=== PATIENT | female | born 1990 | race Hispanic/Latino ===

== ENCOUNTER 2017-06-12 23:29 | Emergency (ER) | payer OTHER ==
[2017-06-13 01:04] VITALS: BP 123/73; PULSE 91; RESP 17; TEMP 98.3; O2SAT 100
[2017-06-13] MEDS ORDERED: Lidocaine 1% Inj (20ml) SC ONE (01:06)
--- NOTE | 2017-06-13 01:08 | ED PDOC ---
HPI: General Adult Time Seen by Provider: 06/13/17 01:06 Chief Complaint (Nursing): Abnormal Skin Integrity Chief Complaint (Provider): hand laceration History Per: Patient (27 y/o female here with right hand laceration noted when glass sticking out of trashbag cut her. IS right hand dominant. Unsure of tetanus vaccine status.) Past Medical History Reviewed: Historical Data, Nursing Documentation, Vital Signs Vital Signs: Last Vital Signs Temp 98.3 F 06/13/17 00:43 Pulse 91 H 06/13/17 00:43 Resp 17 06/13/17 00:43 BP 123/73 06/13/17 00:43 Pulse Ox 100 06/13/17 01:08 - Family History Family History: States: No Known Family Hx - Home Medications Home Medications: Ambulatory Orders Medication Instructions Recorded Cephalexin [Keflex] 500 mg PO QID #20 capsule 06/13/17 - Allergies Allergies/Adverse Reactions: Allergies Allergy/AdvReac Type Severity Reaction Status Date / Time No Known Allergies Allergy Verified 06/13/17 01:04 Review of Systems ROS Statement: Except As Marked, All Systems Reviewed And Found Negative Musculoskeletal: Positive for: Hand Pain Physical Exam - Reviewed Nursing Documentation Reviewed: Yes Vital Signs Reviewed: Yes - Physical Exam Appears: Positive for: Well, Non-toxic, No Acute Distress Head Exam: Positive for: ATRAUMATIC, NORMAL INSPECTION, NORMOCEPHALIC Skin: Positive for: Normal Color, Warm, DRY Eye Exam: Positive for: EOMI, Normal appearance, PERRL ENT: Positive for: Normal ENT Inspection Neck: Positive for: Normal, Painless ROM Cardiovascular/Chest: Positive for: Regular Rate, Rhythm Respiratory: Positive for: CNT, Normal Breath Sounds Gastrointestinal/Abdominal: Positive for: Normal Exam, Bowel Sounds, Soft Back: Positive for: Normal Inspection Extremity: Positive for: Normal ROM, Other (1.25 cm macerated laceration volar surface of index finger by PIP right hand.) Neurologic/Psych: Positive for: Alert, Oriented - ECG O2 Sat by Pulse Oximetry: 100 - Progress ED Course And Treament: Tdap 0.5 ml IM x 1 dose PLACED IN FINGER SPLINT Disposition - Clinical Impression Clinical Impression: Finger laceration - Patient ED Disposition Is Patient to be Admitted: No - Disposition Disposition: Routine/Home Disposition Time: 01:58 Condition: FAIR Additional Instructions: F/U WITH ED/PMD/URGENT CARE IN 7-10DAYS FOR REMOVAL OF SUTURES. Prescriptions: Cephalexin [Keflex] 500 mg PO QID #20 capsule Instructions: Finger Laceration (ED) Forms: [facility] ([place]) Procedure: Wound Repair - Time Performed Time Performed: 01:57 - Time Out Time Out: Site verified - Consent Obtained Consent obtained: Verbal - Performed by Performed by: Mid-level Provider - Indications Indication(s):: Laceration - Location Location:: Right Finger:: Index Shape:: Curvilinear Dimensions Length cm: 1.25cm Depth:: Epidermis - Anesthetic Technique Anesthetic Technique: Regional block Local/Regional Anesthetic:: Lidocaine 1% - Irrigated Irrigated with ml of normal saline: 150ml - Complexity Complexity:: Simple (one layer) - Wound repair method Sutures:: # (3), Size (4-0), Type (nylon), Technique (interrupted) - Patient tolerated procedure Patient Tolerated Procedure:: Well
[2017-06-13] MEDS ORDERED: Lidocaine 1% Inj (20ml) ONE (01:10)
== END 2017-06-13 02:33 | disposition home or self-care (01) ==
LOC: H.ER 23:29
DX: S61.210A Laceration without foreign body of right index finger without damage to nail, initial encounter (principal); W25.XXXA Contact with sharp glass, initial encounter; Y92.89 Other specified places as the place of occurrence of the external cause